=== PATIENT | male | born 1935 | race Caucasian/White ===

== ENCOUNTER 2017-12-01 16:17 | Outpatient (CLI) | payer MEDICARE ==
[~2017-12-01 16:17] MED LIST: ASPI81TA52 PO; CHOL100046 PO; CIPR250T4 PO; GLUC-133 PO; MELA1TAB15 PO; METO-539 PO; METO50TA7 PO; MULT1TAB74 PO; SIMV10TA2 PO; TAMS0.4C32 PO
== END 2017-12-01 23:59 | disposition home or self-care (01) ==
LOC: VAS 16:17
PROVIDERS: ATTEND Specialist
DX: R60.0 Localized edema (principal)
CPT/HCPCS: 93970

== ENCOUNTER 2018-03-15 09:40 | Outpatient (CLI) | payer MEDICARE ==
[2018-03-15 10:50] LABS: BASOPHILS % (AUTO) 0.7 % (0-1); EOSINOPHILS # (AUTO) 0.1 X10'3 (0-0.9); EOSINOPHILS % (AUTO) 2.3 % (0-6); HEMATOCRIT 40.4 % (42.0-52.0); HEMOGLOBIN 13.7 g/dl (14.0-17.9); LYMPHOCYTES # (AUTO) 0.7 X10'3 (1.1-4.8); LYMPHOCYTES % (AUTO) 15.2 % (21-51); MEAN CORPUSCULAR HEMOGLOBIN 31.4 PG (27.0-31.0); MEAN CORPUSCULAR VOLUME 92.3 FL (78-98); MEAN PLATELET VOLUME 8.6 FL (7.4-10.4); MONOCYTES # (AUTO) 0.5 X10'3 (0-0.9); MONOCYTES % (AUTO) 10.4 % (2-12); NEUTROPHILS # (AUTO) 3.5 X10'3 (1.8-7.7); NEUTROPHILS % (AUTO) 71.4 % (42-75); PLATELET COUNT 156 X10'3 (140-440); RED BLOOD COUNT 4.37 X10'6 (4.70-6.10); RED CELL DISTRIBUTION WIDTH 13.1 % (11.5-14.5); WHITE BLOOD COUNT 4.8 X10'3 (4.5-11.0)
[2018-03-15 10:51] LABS: ALANINE AMINOTRANSFERASE 26 U/L (12-78); ALBUMIN 3.4 G/DL (3.4-5.0); ALBUMIN/GLOBULIN RATIO 1.1 (1.1-1.5); ALKALINE PHOSPHATASE 80 IU/L (46-116); ANION GAP 10 (8-16); ASPARTATE AMINO TRANSFERASE 20 U/L (10-37); BILIRUBIN,TOTAL 0.6 MG/DL (0.1-1.0); BLOOD UREA NITROGEN 21 MG/DL (7-18); BUN/CREATININE RATIO 26.6 (5.4-32.0); CALCIUM 8.4 MG/DL (8.5-10.1); CHLORIDE 106 MMOL/L (99-107); CREATININE 0.79 MG/DL (0.60-1.10); GLUCOSE 93 MG/DL (70-104); SODIUM 141 MMOL/L (135-145); TOTAL CARBON DIOXIDE 25.1 MMOL/L (24-32); TOTAL PROTEIN 6.6 G/DL (6.4-8.2); eGFR > 90 ML/MIN
[2018-03-15 10:56] LABS: PROTHROMBIN TIME 10.7 SECONDS (9.0-12.0)
[2018-03-15 10:58] LABS: CLARITY,URINE CLEAR (Clear); COLOR,URINE YELLOW (Yellow); GLUCOSE, URINE NEGATIVE (Neg); KETONES,URINE NEGATIVE (Neg); LEUKOCYTE ESTERASE ,URINE NEGATIVE (Neg); NITRITES, URINE NEGATIVE (Neg); OCCULT BLOOD,URINE TRACE-INTACT (Neg); PH,URINE 5.5 (4.8-8.0); PROTEIN,URINE NEGATIVE (Neg); UROBILINOGEN,URINE 0.2 E.U/dL (0.2-1.0)
[2018-03-15 11:00] LABS: UA COLLECTION TYPE CLN CATCH MIDSTREAM
[2018-03-15 11:10] LABS: BACTERIA,URINE FEW /HPF (Neg); RBC,URINE 0-2 /HPF (0-2); SQUAMOUS EPITHELIAL CELL,UR FEW /LPF (FEW); WBC,URINE 0-4 /HPF (0-4)
== END 2018-03-15 23:59 | disposition home or self-care (01) ==
LOC: LAB 09:40
PROVIDERS: ATTEND Specialist
DX: Z01.818 Encounter for other preprocedural examination (principal); Z51.81 Encounter for therapeutic drug level monitoring; N39.0 Urinary tract infection, site not specified; Z96.651 Presence of right artificial knee joint; Z79.82 Long term (current) use of aspirin; Z79.899 Other long term (current) drug therapy
CPT/HCPCS: 36415; 80053; 81001; 85025; 85610; 87070

== ENCOUNTER 2018-03-29 07:30 | Inpatient (IN) | payer MEDICARE ==
[2018-03-29] VITALS (18 sets, daily range): BP systolic 108–142; BP diastolic 64–88
[~2018-03-29] VITALS: Ht 170.2 cm; Wt 65.5 kg
[~2018-03-29 07:30] MED LIST changes: -CHOL100046 PO; -CIPR250T4 PO; +DOCUMENT DATE & TIME OF BETA-BLOCKER PO ONE; +DUTA0.5C40 PO; +FLO0.4C PO; -GLUC-133 PO; -MELA1TAB15 PO; -MULT1TAB74 PO; -TAMS0.4C32 PO; +acetaminophen 325mg tablet PO ONE; +cefazolin/dext.iso 2gm/100 ML IV ONE; +celeCOXIB 100mg capsule PO ONE; +famotidine 20mg tablet PO ONE; +gabapentin 300mg capsule PO ONE; +ringers solution, lacted 1,000 ML IV SCH; +tranexamic acid inj. 1,500 MG in normal saline 100ml IV soln 100 ML IV ONE
[2018-03-29] MEDS ORDERED: bacitracin inj 150,000 UNIT in sodium chloride irrig. sol 3,000 ML IR ONE (10:00)
[2018-03-29] MEDS ORDERED: ROPIVAcaine 0.5% (5mg/ml) 30ml vial ONE ×2 (10:02→10:08)
[2018-03-29] MEDS ORDERED: tetracaine 1% (10mg/ml) pres. free inj. ONE (10:08)
[2018-03-29] MEDS ORDERED: BUPIVAcaine/dex-water/PF 7.5 mg/ml 2ml ampul ONE (10:09)
[2018-03-29] MEDS ORDERED: LIDOcaine 2% (20mg/ml) 5ml vial ONE (10:10)
[2018-03-29] MEDS ORDERED: fentaNYL/PF 50MCG/1 ML 2ML syringe ONE (10:11)
[2018-03-29] MEDS ORDERED: MIDAZolam 1mg/ml 10ml vial ONE (10:11)
[2018-03-29] MEDS ORDERED: propofol inj 20 ML IV ONE ×2 (10:15)
[2018-03-29] MEDS ORDERED: ePHEDrine 50MG/ML INJ. ONE (10:39)
[2018-03-29] MEDS ORDERED: ringers solution, lacted 1,000 ML IV SCH (11:09)
[2018-03-29] MEDS ORDERED: labetalol 20mg/4ml (5mg/ml) syringe IV PRN (11:10)
[2018-03-29] MEDS ORDERED: fentaNYL/PF 50MCG/1 ML 2ML syringe IV PRN ×2 (11:10)
[2018-03-29] MEDS ORDERED: hydrALAZINE 20mg/ml inj. IV PRN (11:10)
[2018-03-29] MEDS ORDERED: ondansetron/PF 4mg/2ml inj IV PRN ×3 (11:10→12:35)
[2018-03-29] MEDS ORDERED: morphine 4 MG/ML inj SYRINge IV PRN ×2 (11:10)
[2018-03-29] MEDS ORDERED: diphenhydrAMINE 50 mg/ml inj IV PRN (11:15)
[2018-03-29] MEDS ORDERED: ceFAZolin 1000mg inj ONE (11:23)
[2018-03-29] MEDS ORDERED: acetaminophen 325mg tablet PO PRN (12:35)
[2018-03-29] MEDS ORDERED: magnesium hydroxide 30ml (MOM) UD suspension PO PRN (12:35)
[2018-03-29] MEDS ORDERED: bisacodyl 10mg suppository rectal RC PRN (12:35)
[2018-03-29] MEDS ORDERED: diphenhydrAMINE 25mg capsule PO PRN ×2 (12:35)
[2018-03-29] MEDS: ceFAZolin 1GM/D5W- ADD-VANTAGE 50 ML IV SCH ×2 (15:31→23:23)
[2018-03-29] MEDS: gabapentin 300mg capsule PO SCH ×2 (15:31→20:38)
[2018-03-29] MEDS: potassium cl 20mEq in 1/2 NS 1,000 ML IV SCH ×2 (17:30→23:27)
[2018-03-29] MEDS: proCHLORperazine 10 MG/2 ml inj IV PRN (19:23)
[2018-03-29] MEDS: atorvastatin 10mg tablet PO SCH (20:37)
[2018-03-29] MEDS: tamsulosin 0.4mg capsule PO SCH (20:37)
[2018-03-29] MEDS: sennosides 8.6mg tablet PO SCH (20:37)
[2018-03-29] MEDS: lactobacillus rhamnosus 10,000 MMU CELLS/CAPSULE PO SCH (20:37)
[2018-03-29] MEDS: ascorbic acid 500mg tablet PO SCH (20:37)
[2018-03-29] MEDS: metoprolol succinate 25mg (24-HOUR) SR. Tablet PO SCH (20:37)
[2018-03-29] MEDS ORDERED: non-formulary drug (Simvastatin (Zocor) 1 TAB) PO SCH (21:00)
[2018-03-29] MEDS: dutasteride 0.5 MG capsule PO SCH (21:00)
[2018-03-30 02:00] VITALS: BP 101/69
[2018-03-30] MEDS: oxyCODONE/APAP 5-325mg tablet PO PRN ×5 (04:42→23:34)
[2018-03-30 05:54] LABS: BASOPHILS % (AUTO) 0.2 % (0-1); EOSINOPHILS # (AUTO) 0.1 X10'3 (0-0.9); EOSINOPHILS % (AUTO) 0.7 % (0-6); HEMATOCRIT 37.2 % (42.0-52.0); HEMOGLOBIN 12.4 g/dl (14.0-17.9); LYMPHOCYTES # (AUTO) 0.4 X10'3 (1.1-4.8); LYMPHOCYTES % (AUTO) 4.6 % (21-51); MEAN CORPUSCULAR HEMOGLOBIN 30.8 PG (27.0-31.0); MEAN CORPUSCULAR HGB CONC 33.4 % (33.0-36.5); MEAN CORPUSCULAR VOLUME 92.1 FL (78-98); MEAN PLATELET VOLUME 7.9 FL (7.4-10.4); MONOCYTES # (AUTO) 0.7 X10'3 (0-0.9); MONOCYTES % (AUTO) 9.3 % (2-12); NEUTROPHILS # (AUTO) 6.6 X10'3 (1.8-7.7); NEUTROPHILS % (AUTO) 85.2 % (42-75); PLATELET COUNT 140 X10'3 (140-440); RED BLOOD COUNT 4.04 X10'6 (4.70-6.10); RED CELL DISTRIBUTION WIDTH 14.1 % (11.5-14.5); WHITE BLOOD COUNT 7.8 X10'3 (4.5-11.0)
[2018-03-30 06:00] VITALS: BP 103/57
[2018-03-30 06:08] LABS: INR 1.4 INR; PROTHROMBIN TIME 14.4 SECONDS (9.0-12.0)
[2018-03-30 06:19] LABS: ALANINE AMINOTRANSFERASE 23 U/L (12-78); ALBUMIN 2.9 G/DL (3.4-5.0); ALKALINE PHOSPHATASE 50 IU/L (46-116); ANION GAP 8 (8-16); ASPARTATE AMINO TRANSFERASE 19 U/L (10-37); BILIRUBIN,TOTAL 0.7 MG/DL (0.1-1.0); BLOOD UREA NITROGEN 17 MG/DL (7-18); BUN/CREATININE RATIO 21.8 (5.4-32.0); CALCIUM 7.9 MG/DL (8.5-10.1); CHLORIDE 104 MMOL/L (99-107); CREATININE 0.78 MG/DL (0.60-1.10); GLUCOSE 115 MG/DL (70-104); POTASSIUM 4.7 MMOL/L (3.5-5.1); SODIUM 137 MMOL/L (135-145); TOTAL CARBON DIOXIDE 25.5 MMOL/L (24-32); TOTAL PROTEIN 5.7 G/DL (6.4-8.2); eGFR > 90 ML/MIN
[2018-03-30] MEDS: lactobacillus rhamnosus 10,000 MMU CELLS/CAPSULE PO SCH ×2 (07:25→20:19)
[2018-03-30] MEDS: gabapentin 300mg capsule PO SCH ×3 (07:25→20:19)
[2018-03-30] MEDS: ascorbic acid 500mg tablet PO SCH ×2 (07:25→20:22)
[2018-03-30] MEDS: multivitamins, therapeutics tablet PO SCH (07:26)
[2018-03-30] MEDS: metoprolol succinate 25mg (24-HOUR) SR. Tablet PO SCH ×2 (07:36→21:00)
[2018-03-30] MEDS ORDERED: non-formulary drug (Metoprolol Succinate* (Toprol Xl*) 1 TAB) PO SCH (08:00)
[2018-03-30] MEDS: proCHLORperazine 10 MG/2 ml inj IV PRN (08:26)
[2018-03-30 10:00] VITALS: BP 102/57
[2018-03-30] MEDS ORDERED: warfarin 5mg tablet PO ONE (10:00)
[2018-03-30 10:42] VITALS: BP 102/57
[2018-03-30] MEDS: potassium cl 20mEq in 1/2 NS 1,000 ML IV SCH ×3 (10:59→23:20)
[2018-03-30 18:00] VITALS: BP 96/51
[2018-03-30] MEDS: HYDROmorphone 1 mg/ml syringe IV PRN (20:17)
[2018-03-30] MEDS: atorvastatin 10mg tablet PO SCH (20:21)
[2018-03-30] MEDS: sennosides 8.6mg tablet PO SCH (20:21)
[2018-03-30] MEDS: dutasteride 0.5 MG capsule PO SCH (20:22)
[2018-03-30] MEDS: tamsulosin 0.4mg capsule PO SCH (20:22)
[2018-03-30 22:00] VITALS: BP 121/62
[2018-03-31 02:00] VITALS: BP 121/59
[2018-03-31] MEDS: potassium cl 20mEq in 1/2 NS 1,000 ML IV SCH (04:33)
[2018-03-31] MEDS: oxyCODONE/APAP 5-325mg tablet PO PRN (04:52)
[2018-03-31 06:00] VITALS: BP 138/70
[2018-03-31 06:58] LABS: BASOPHILS % (AUTO) 0.1 % (0-1); EOSINOPHILS # (AUTO) 0.1 X10'3 (0-0.9); EOSINOPHILS % (AUTO) 1.6 % (0-6); HEMATOCRIT 39.6 % (42.0-52.0); LYMPHOCYTES # (AUTO) 0.6 X10'3 (1.1-4.8); LYMPHOCYTES % (AUTO) 6.6 % (21-51); MEAN CORPUSCULAR HEMOGLOBIN 30.4 PG (27.0-31.0); MEAN CORPUSCULAR HGB CONC 32.7 % (33.0-36.5); MEAN CORPUSCULAR VOLUME 92.8 FL (78-98); MEAN PLATELET VOLUME 8.2 FL (7.4-10.4); MONOCYTES # (AUTO) 0.9 X10'3 (0-0.9); NEUTROPHILS # (AUTO) 7.3 X10'3 (1.8-7.7); NEUTROPHILS % (AUTO) 81.7 % (42-75); PLATELET COUNT 147 X10'3 (140-440); RED BLOOD COUNT 4.27 X10'6 (4.70-6.10); RED CELL DISTRIBUTION WIDTH 14.7 % (11.5-14.5)
[2018-03-31] MEDS: HYDROmorphone 1 mg/ml syringe IV PRN (06:58)
[2018-03-31 07:17] LABS: INR 1.6 INR; PROTHROMBIN TIME 16.1 SECONDS (9.0-12.0)
[2018-03-31 07:29] LABS: ALANINE AMINOTRANSFERASE 22 U/L (12-78); ALBUMIN 3.1 G/DL (3.4-5.0); ALKALINE PHOSPHATASE 56 IU/L (46-116); ANION GAP 9 (8-16); ASPARTATE AMINO TRANSFERASE 17 U/L (10-37); BILIRUBIN,TOTAL 0.8 MG/DL (0.1-1.0); BLOOD UREA NITROGEN 16 MG/DL (7-18); BUN/CREATININE RATIO 18.8 (5.4-32.0); CALCIUM 8.1 MG/DL (8.5-10.1); CHLORIDE 105 MMOL/L (99-107); CREATININE 0.85 MG/DL (0.60-1.10); GLUCOSE 95 MG/DL (70-104); POTASSIUM 4.1 MMOL/L (3.5-5.1); SODIUM 141 MMOL/L (135-145); TOTAL CARBON DIOXIDE 26.9 MMOL/L (24-32); TOTAL PROTEIN 6.1 G/DL (6.4-8.2); eGFR 87 ML/MIN
[2018-03-31 08:48] VITALS: BP 122/66
[2018-03-31] MEDS: lactobacillus rhamnosus 10,000 MMU CELLS/CAPSULE PO SCH ×2 (09:12→21:03)
[2018-03-31] MEDS: ascorbic acid 500mg tablet PO SCH ×2 (09:12→21:03)
[2018-03-31] MEDS: multivitamins, therapeutics tablet PO SCH (09:12)
[2018-03-31] MEDS: metoprolol succinate 25mg (24-HOUR) SR. Tablet PO SCH ×2 (09:13→21:04)
[2018-03-31] MEDS: gabapentin 300mg capsule PO SCH ×3 (09:13→21:04)
[2018-03-31] MEDS: oxyCODONE/APAP 10/325mg tablet PO PRN ×4 (09:14→21:36)
[2018-03-31 10:00] VITALS: BP_SYST 113; BP_SYST 124; BP_DIAS 49; BP_DIAS 67
[2018-03-31] MEDS ORDERED: warfarin 3mg tablet PO ONE (10:00)
[2018-03-31 18:00] VITALS: BP 127/70
[2018-03-31] MEDS: dutasteride 0.5 MG capsule PO SCH (21:03)
[2018-03-31] MEDS: tamsulosin 0.4mg capsule PO SCH (21:03)
[2018-03-31] MEDS: atorvastatin 10mg tablet PO SCH (21:03)
[2018-03-31] MEDS: sennosides 8.6mg tablet PO SCH (21:04)
[2018-03-31 22:00] VITALS: BP 132/61
[2018-04-01] MEDS: oxyCODONE/APAP 10/325mg tablet PO PRN ×5 (02:19→15:46)
[2018-04-01 06:00] VITALS: BP 131/76
[2018-04-01 06:42] LABS: BASOPHILS % (AUTO) 0.3 % (0-1); EOSINOPHILS # (AUTO) 0.2 X10'3 (0-0.9); EOSINOPHILS % (AUTO) 2.6 % (0-6); HEMATOCRIT 37.5 % (42.0-52.0); HEMOGLOBIN 12.5 g/dl (14.0-17.9); LYMPHOCYTES # (AUTO) 0.8 X10'3 (1.1-4.8); LYMPHOCYTES % (AUTO) 9.8 % (21-51); MEAN CORPUSCULAR HEMOGLOBIN 30.9 PG (27.0-31.0); MEAN CORPUSCULAR HGB CONC 33.3 % (33.0-36.5); MEAN CORPUSCULAR VOLUME 92.7 FL (78-98); MEAN PLATELET VOLUME 8.2 FL (7.4-10.4); MONOCYTES # (AUTO) 0.9 X10'3 (0-0.9); MONOCYTES % (AUTO) 11.6 % (2-12); NEUTROPHILS # (AUTO) 6.1 X10'3 (1.8-7.7); NEUTROPHILS % (AUTO) 75.7 % (42-75); PLATELET COUNT 145 X10'3 (140-440); RED BLOOD COUNT 4.05 X10'6 (4.70-6.10); RED CELL DISTRIBUTION WIDTH 14.5 % (11.5-14.5)
[2018-04-01 07:00] LABS: INR 1.5 INR
[2018-04-01 07:03] LABS: ALANINE AMINOTRANSFERASE 20 U/L (12-78); ALBUMIN 2.9 G/DL (3.4-5.0); ALBUMIN/GLOBULIN RATIO 0.9 (1.1-1.5); ALKALINE PHOSPHATASE 54 IU/L (46-116); ANION GAP 7 (8-16); ASPARTATE AMINO TRANSFERASE 15 U/L (10-37); BILIRUBIN,TOTAL 0.7 MG/DL (0.1-1.0); BLOOD UREA NITROGEN 15 MG/DL (7-18); BUN/CREATININE RATIO 18.8 (5.4-32.0); CALCIUM 8.6 MG/DL (8.5-10.1); CHLORIDE 104 MMOL/L (99-107); GLUCOSE 89 MG/DL (70-104); SODIUM 141 MMOL/L (135-145); TOTAL CARBON DIOXIDE 30.2 MMOL/L (24-32); TOTAL PROTEIN 6.2 G/DL (6.4-8.2); eGFR > 90 ML/MIN
[2018-04-01] MEDS: lactobacillus rhamnosus 10,000 MMU CELLS/CAPSULE PO SCH (08:01)
[2018-04-01] MEDS: multivitamins, therapeutics tablet PO SCH (08:02)
[2018-04-01] MEDS: gabapentin 300mg capsule PO SCH ×2 (08:02→13:00)
[2018-04-01] MEDS: ascorbic acid 500mg tablet PO SCH (08:02)
[2018-04-01] MEDS: metoprolol succinate 25mg (24-HOUR) SR. Tablet PO SCH (08:03)
[2018-04-01 10:00] VITALS: BP 107/66
[2018-04-01] MEDS ORDERED: warfarin 4mg tablet PO ONE (10:00)
== END 2018-04-01 16:05 | DRG 470 ==
LOC: PAS IN 09:00 → EDSTATUS 11:00 → ORTHO 4S 13:50
PROVIDERS: ADMIT Specialist; ATTEND Specialist
PROC: 3E0T3BZ Introduction of Anesthetic Agent into Peripheral Nerves and Plexi, Percutaneous Approach (ICD-10-PCS; 2018-03-29)
PROC: 0SRD0J9 Replacement of Left Knee Joint with Synthetic Substitute, Cemented, Open Approach (ICD-10-PCS; principal; 2018-03-29 10:15)
DX: M17.12 Unilateral primary osteoarthritis, left knee (principal); D62 Acute posthemorrhagic anemia; N40.0 Benign prostatic hyperplasia without lower urinary tract symptoms; G47.33 Obstructive sleep apnea (adult) (pediatric); I25.10 Atherosclerotic heart disease of native coronary artery without angina pectoris; F32.9 Major depressive disorder, single episode, unspecified; E78.5 Hyperlipidemia, unspecified; I48.91 Unspecified atrial fibrillation; Z96.651 Presence of right artificial knee joint; M21.162 Varus deformity, not elsewhere classified, left knee; Z79.899 Other long term (current) drug therapy; Z79.82 Long term (current) use of aspirin; Z85.820 Personal history of malignant melanoma of skin
CPT/HCPCS: 36415; 73560; 80053; 85025; 85610; 97110; 97116; 97162; 97530; A6449; A6455; A7000; C1713; C1758; C1776; J0690; J0780; J1170; J2001; J2250; J2405; J2704; J2795; J3010; J3490; J7030; J7120; Q0163

== ENCOUNTER 2019-02-20 20:42 | Emergency (ER) | payer MEDICARE ==
[~2019-02-20] VITALS: Ht 170.2 cm; Wt 64.5 kg
[~2019-02-20 20:42] MED LIST changes: -DOCUMENT DATE & TIME OF BETA-BLOCKER PO ONE; -acetaminophen 325mg tablet PO ONE; -cefazolin/dext.iso 2gm/100 ML IV ONE; -celeCOXIB 100mg capsule PO ONE; -famotidine 20mg tablet PO ONE; -gabapentin 300mg capsule PO ONE; -ringers solution, lacted 1,000 ML IV SCH; -tranexamic acid inj. 1,500 MG in normal saline 100ml IV soln 100 ML IV ONE
[2019-02-20] MEDS ORDERED: HYDROcodone/acetaminophen 5mg/325mg tablet PO ONE (22:10)
[2019-02-20 22:12] VITALS: BP 130/83
== END 2019-02-20 22:15 | disposition home or self-care (01) ==
LOC: ER 20:43
DX: S50.311A Abrasion of right elbow, initial encounter (principal); S00.211A Abrasion of right eyelid and periocular area, initial encounter; R07.81 Pleurodynia; I48.91 Unspecified atrial fibrillation; I25.10 Atherosclerotic heart disease of native coronary artery without angina pectoris; E78.00 Pure hypercholesterolemia, unspecified; I10 Essential (primary) hypertension; Z79.82 Long term (current) use of aspirin; Z98.890 Other specified postprocedural states; Z79.899 Other long term (current) drug therapy; W18.30XA Fall on same level, unspecified, initial encounter; Y93.89 Activity, other specified; Y92.89 Other specified places as the place of occurrence of the external cause; Y99.9 Unspecified external cause status
CPT/HCPCS: 71046; 93005; 99284

== ENCOUNTER 2019-06-03 10:18 | Emergency (ER) | payer MEDICAID, MEDICARE ==
[~2019-06-03] VITALS: Ht 167.6 cm; Wt 44.6 kg
--- NOTE | 2019-06-03 11:07 | NUR ---
Pt no longer taking his medications as he can not afford them and has no RX coverage.
[2019-06-03] MEDS ORDERED: SERT-153 PO (11:10)
[2019-06-03] MEDS ORDERED: LORazepam 1 MG tablet PO ONE (11:55)
[2019-06-03 12:53] LABS: CLARITY,URINE CLEAR (Clear); COLOR,URINE YELLOW (Yellow); GLUCOSE, URINE NEGATIVE (Neg); KETONES,URINE NEGATIVE (Neg); LEUKOCYTE ESTERASE ,URINE NEGATIVE (Neg); NITRITES, URINE NEGATIVE (Neg); OCCULT BLOOD,URINE NEGATIVE (Neg); PH,URINE 5.5 (4.8-8.0); PROTEIN,URINE NEGATIVE (Neg)
[2019-06-03 12:54] LABS: UA COLLECTION TYPE CLN CATCH MIDSTREAM
[2019-06-03 13:05] LABS: BASOPHILS % (AUTO) 0.2 % (0-1); EOSINOPHILS % (AUTO) 0.3 % (0-6); HEMATOCRIT 44.6 % (42.0-52.0); HEMOGLOBIN 15.1 g/dl (14.0-17.9); LYMPHOCYTES # (AUTO) 0.4 X10'3 (1.1-4.8); LYMPHOCYTES % (AUTO) 4.4 % (21-51); MEAN CORPUSCULAR HEMOGLOBIN 32.6 PG (27.0-31.0); MEAN CORPUSCULAR HGB CONC 33.9 g/dL (33.0-36.5); MEAN CORPUSCULAR VOLUME 96.3 FL (78-98); MONOCYTES # (AUTO) 0.8 X10'3 (0-0.9); MONOCYTES % (AUTO) 8.8 % (2-12); NEUTROPHILS # (AUTO) 7.5 X10'3 (1.8-7.7); NEUTROPHILS % (AUTO) 86.3 % (42-75); PLATELET COUNT 166 X10'3 (140-440); RED BLOOD COUNT 4.63 X10'6 (4.70-6.10); RED CELL DISTRIBUTION WIDTH 13.6 % (11.5-14.5); WHITE BLOOD COUNT 8.6 X10'3 (4.5-11.0)
[2019-06-03 13:08] LABS: URINE AMPHETAMINE SCREEN NEGATIVE (Neg); URINE BARBITUATE SCREEN NEGATIVE (Neg); URINE BENZODIAZEPINES SCREEN NEGATIVE (Neg); URINE CANNABINOID SCREEN NEGATIVE (Neg); URINE COCAINE SCREEN NEGATIVE (Neg); URINE METHADONE SCREEN NEGATIVE (Neg); URINE OPIATE SCREEN NEGATIVE (Neg); URINE PHENCYCLIDINE SCREEN NEGATIVE (Neg)
--- NOTE | 2019-06-03 13:17 | NUR ---
belongings collected and given to son of pt to take home.
[2019-06-03 13:25] LABS: ALANINE AMINOTRANSFERASE 60 U/L (12-78); ALBUMIN 3.7 G/DL (3.4-5.0); ALBUMIN/GLOBULIN RATIO 1.2 (1.1-1.5); ALKALINE PHOSPHATASE 68 IU/L (46-116); ANION GAP 11 (8-16); ASPARTATE AMINO TRANSFERASE 27 U/L (10-37); BILIRUBIN,TOTAL 1.4 MG/DL (0.1-1.0); BLOOD UREA NITROGEN 28 MG/DL (7-18); CALCIUM 8.8 MG/DL (8.5-10.1); CHLORIDE 105 MMOL/L (99-107); CREATININE 1.12 MG/DL (0.60-1.10); GLUCOSE 110 MG/DL (70-104); POTASSIUM 4.1 MMOL/L (3.5-5.1); SODIUM 142 MMOL/L (135-145); TOTAL CARBON DIOXIDE 26.3 MMOL/L (24-32); TOTAL PROTEIN 6.9 G/DL (6.4-8.2); eGFR 63 ML/MIN
[2019-06-03 13:34] LABS: ETHANOL < 0.010 GM/DL (0.0-0.010)
[2019-06-03] MEDS ORDERED: OLANZapine 5mg rapidly disint. tablet PO ONE (15:50)
[2019-06-03] MEDS ORDERED: bacitracin 15gm ointment TP ONE (18:35)
--- NOTE | 2019-06-03 18:45 | NUR ---
This patient is awake and well oriented. He is moved from bed 8 in the main ER to bed 20 in overflow. Patient has primary complaint of anxiety. Patient states he has not had a tetnus shot for years, a small flap wound present on his right hand that has been present for a week. Family is visiting at bedside.
[2019-06-03] MEDS ORDERED: tetanus & diphtheria toxoid (Td) vaccine 0.5ml IMVAC ONE (18:55)
[2019-06-03] MEDS ORDERED: TETanus/Pertussis (Acell)/Diphther VAC/PF (Tdap-Adult) 0.5ml syringe IMVAC ONE (19:05)
[2019-06-03] MEDS: LORazepam 1 MG tablet PO PRN (19:22)
--- NOTE | 2019-06-03 19:32 | NUR ---
In speaking with family the patients daughter and son the following information was obtained. The patient has been non compliant on taking home medications. Patient has been experiencing anxiety, some paranoia, and depression. Patient reported to not be eating well. The patient was given PO ativan earlier today and symptoms subsided. Upon this writers interview 1:1 with this patient he is just starting to experience anxiety. 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 The Doxepin was discontinued as patients depression resolved. This patient describes parania, he believes his residence may be being survailed by the police, he believes lights may be coming through the kitchen window. This patient makes good eye contact with this investigative writer. His voice is within normal limits. Patient denies depression at this moment. Patient denies S/I, he does feel like he is a burden to his family. Patients bed is in view from the nursing station. Frequent rounding is being done for patient and staff safety.
--- NOTE | 2019-06-03 21:50 | NUR ---
Patient is sitting up finishing his dinner that he did not complete earlier. Patient started commenting with nobody at bedside. When this narrative writer inquires who he is talking to the patient states the movie he is watchin " has an actor in it that has in real life."
[2019-06-03] MEDS ORDERED: FLO0.4C PO (21:58)
[2019-06-03] MEDS ORDERED: SIMV10TA2 PO (22:02)
[2019-06-03] MEDS ORDERED: ASPI-1265 PO (22:06)
[2019-06-03] MEDS ORDERED: DUTA0.5C40 PO (22:08)
[2019-06-03] MEDS ORDERED: METO100T7 PO (22:10)
[2019-06-03] MEDS ORDERED: temazepam 15mg capsule PO ONE (22:30)
--- NOTE | 2019-06-03 22:30 | NUR ---
The med rec is complete. Patient states he has not been taking Rx meds as he has not had the money to refil Rx's. Patient confirmed doses of medications with this typewriter assembly and parts inspector. The only dosage change was on patients Metoprolol, patient states his PMD incrreased from 50mg to 100mg QHS. This typewriter assembly and parts inspector addressed patients blood pressure with Dr. Lutz, per MD re-evaluate blood pressure prior to administering. Patients B/P was 92/61 tonight. No Metoprolol will be given tonight.
--- NOTE | 2019-06-03 22:38 | NUR ---
Patient was given a urinal to use at bedside, he is shakey when standing.
--- NOTE | 2019-06-03 22:50 | NUR ---
Dajuan Monet, patients son. [phone]
--- NOTE | 2019-06-03 22:51 | NUR ---
Patient laying low fowlers in bed. He is having conversations with a non existant person. Restoril has been given for sleep. Patient in view from nursing station.
--- NOTE | 2019-06-04 00:43 | NUR ---
Patient is sleeping quietly on his right side. In view from the nursing station.
--- NOTE | 2019-06-04 02:15 | NUR ---
Patient awoke and stated he needed to void. Patient had voided in the bed. Patient changed, clean scrubs given. Bedding changed. Patient voided an additional 200 cc clear straw urine. Patient placed back in bed in low fowlers position. Warm blankets provided. Patient in view from nursing station.
--- NOTE | 2019-06-04 03:20 | NUR ---
Patient is sleeping quietly in a low fowlers position.
--- NOTE | 2019-06-04 04:10 | NUR ---
Patient awakens to void then returns to sleep.
--- NOTE | 2019-06-04 05:10 | NUR ---
Patient is sleeping on his left side.
--- NOTE | 2019-06-04 06:00 | NUR ---
Patient is awake for vital signs. He ambulates to bathroom, states he is going to have a BM.
[2019-06-04 06:01] VITALS: BP 126/90
--- NOTE | 2019-06-04 06:33 | NUR ---
Pt ambulating to bathroom with a steady gait
--- NOTE | 2019-06-04 07:55 | NUR ---
PT UP AMBULATING TO THE RESTROOM WITH SLOW STEADY GAIT.
[2019-06-04] MEDS ORDERED: tamsulosin 0.4mg capsule PO SCH (08:00)
[2019-06-04] MEDS ORDERED: sertraline 25mg tablet PO SCH (08:00)
--- NOTE | 2019-06-04 08:02 | NUR ---
Pt is speaking to his step daughter on the phone. He says he has been suffering from severe depression. He feels the medications he has been given here have been helpful. He especially thinks the zyprexa and ativan have been helpful.
[2019-06-04] MEDS: LORazepam 1 MG tablet PO PRN (08:17)
--- NOTE | 2019-06-04 09:04 | NUR ---
Pricila from [facility] called and is requestion a psych eval. Paged for a psych consult from the provider at [facility].
--- NOTE | 2019-06-04 10:31 | NUR ---
Pt up to the bathroom ambulating with steady gait
--- NOTE | 2019-06-04 11:02 | NUR ---
Client in bathroom cleaning up after an episode of incontinence
--- NOTE | 2019-06-04 11:10 | NUR ---
PT AMBULATED TO THE RESTROOM AND URINATED ON HIMSELF. PT GIVEN WIPES AND NEW SCRUB BOTTOMS. PT REQUESTING PULL UPS WHICH WE DO NOT CARRY. PT SON RAYRAY CONTACTED WHO STATES HE LIVES IN [place] AND WILL BRING SOME IN. PT AMBULATED BACK TO BED AND IS RESTING.
--- NOTE | 2019-06-04 11:51 | NUR ---
Pt family incuding son Karlie are at bedside with Pt
--- NOTE | 2019-06-04 11:58 | NUR ---
Pt is being evaluated by Ambrose Sequeira from [facility]
--- NOTE | 2019-06-04 13:00 | NUR ---
Pricila from [facility] let this RN know that patient is not meeting criteria for a mental health hold
--- NOTE | 2019-06-04 13:45 | NUR ---
Pt ambulated off the unit with his son Michael. He denies suicidality and homicidality. He understand that he needs to follow up oupatient. Pt has all belongings with him
[2019-06-04] MEDS ORDERED: metoprolol succinate 25mg (24-HOUR) SR. Tablet PO SCH (21:00)
[2019-06-04] MEDS ORDERED: dutasteride 0.5 MG capsule PO SCH (21:00)
[2019-06-04] MEDS ORDERED: aspirin 81mg tab.chew PO SCH (21:00)
[2019-06-04] MEDS ORDERED: atorvastatin 10mg tablet PO SCH (21:00)
== END 2019-06-04 13:45 | disposition home or self-care (01) ==
LOC: ER 10:19
DX: S61.206A Unspecified open wound of right little finger without damage to nail, initial encounter (principal); F32.9 Major depressive disorder, single episode, unspecified; F22 Delusional disorders; I48.91 Unspecified atrial fibrillation; I25.10 Atherosclerotic heart disease of native coronary artery without angina pectoris; E78.00 Pure hypercholesterolemia, unspecified; I10 Essential (primary) hypertension; Z98.890 Other specified postprocedural states; Z60.2 Problems related to living alone; Z79.82 Long term (current) use of aspirin; Z79.899 Other long term (current) drug therapy; X58.XXXA Exposure to other specified factors, initial encounter; Y93.89 Activity, other specified; Y92.89 Other specified places as the place of occurrence of the external cause; Y99.8 Other external cause status
CPT/HCPCS: 36415; 70450; 80053; 80305; 80320; 81003; 84443; 85025; 90471; 90715; 99284

== ENCOUNTER 2019-06-04 15:23 | Emergency (ER) | payer MEDICARE ==
[~2019-06-04] VITALS: Ht 167.6 cm; Wt 55.0 kg
[~2019-06-04 15:23] MED LIST changes: +ASPI-1265 PO; -ASPI81TA52 PO; -METO-539 PO; +METO100T7 PO; -METO50TA7 PO; +SERT-153 PO
[2019-06-04 16:25] VITALS: BP 116/73
[2019-06-04 16:25] LABS: CLARITY,URINE CLOUDY (Clear); COLOR,URINE RED (Yellow); GLUCOSE, URINE NEGATIVE (Neg); KETONES,URINE NEGATIVE (Neg); LEUKOCYTE ESTERASE ,URINE TRACE (Neg); OCCULT BLOOD,URINE LARGE (Neg); PROTEIN,URINE 100 mg/dl (Neg); UROBILINOGEN,URINE 0.2 E.U/dL (0.2-1.0)
[2019-06-04 16:31] LABS: UA COLLECTION TYPE CLN CATCH MIDSTREAM
[2019-06-04 16:32] LABS: NITRITES, URINE NEGATIVE (Neg)
[2019-06-04 16:33] LABS: BACTERIA,URINE NONE SEEN /HPF (Neg); MUCUS STRANDS NONE SEEN /LPF (Neg); RBC,URINE TNTC /HPF (0-2); SQUAMOUS EPITHELIAL CELL,UR NONE SEEN /LPF (FEW); WBC,URINE 0-4 /HPF (0-4)
== END 2019-06-04 18:02 | disposition home or self-care (01) ==
LOC: ER 15:24
DX: R31.9 Hematuria, unspecified (principal); R30.0 Dysuria; I48.91 Unspecified atrial fibrillation; I25.10 Atherosclerotic heart disease of native coronary artery without angina pectoris; E78.00 Pure hypercholesterolemia, unspecified; I10 Essential (primary) hypertension; Z98.890 Other specified postprocedural states; Z60.2 Problems related to living alone; Z79.82 Long term (current) use of aspirin; Z79.899 Other long term (current) drug therapy
CPT/HCPCS: 81001; 87088; 99284

== ENCOUNTER 2023-12-12 12:15 | Emergency (ER) | payer MEDICARE, MEDICAID ==
[~2023-12-12] VITALS: Ht 165.1 cm; Wt 58.6 kg
[~2023-12-12 12:15] MED LIST changes: +AMI200T PO; +ESCI5TAB PO; +LAN0.25T PO; +LOSA25TA41 PO; +METO-395 PO; -METO100T7 PO; -SERT-153 PO; +SIMV-341 PO; -SIMV10TA2 PO
[2023-12-12 12:36] LABS: BASOPHILS % (AUTO) 0.3 % (0-1); EOSINOPHILS # (AUTO) 0.1 X10'3 (0-0.9); EOSINOPHILS % (AUTO) 0.9 % (0-6); HEMATOCRIT 42.9 % (42.0-52.0); HEMOGLOBIN 14.2 g/dl (14.0-17.9); LYMPHOCYTES # (AUTO) 0.8 X10'3 (1.1-4.8); LYMPHOCYTES % (AUTO) 14.7 % (21-51); MEAN CORPUSCULAR HEMOGLOBIN 30.7 PG (27.0-31.0); MEAN CORPUSCULAR HGB CONC 33.1 g/dL (33.0-36.5); MEAN CORPUSCULAR VOLUME 92.9 FL (78-98); MEAN PLATELET VOLUME 7.4 FL (7.4-10.4); MONOCYTES # (AUTO) 0.5 X10'3 (0-0.9); MONOCYTES % (AUTO) 9.2 % (2-12); NEUTROPHILS # (AUTO) 4.1 X10'3 (1.8-7.7); NEUTROPHILS % (AUTO) 74.9 % (42-75); PLATELET COUNT 188 X10'3 (140-440); RED BLOOD COUNT 4.62 X10'6 (4.70-6.10); RED CELL DISTRIBUTION WIDTH 13.4 % (11.5-14.5); WHITE BLOOD COUNT 5.5 X10'3 (4.5-11.0)
[2023-12-12 12:50] LABS: ALANINE AMINOTRANSFERASE 23 U/L (12-78); ALBUMIN 3.3 G/DL (3.4-5.0); ALBUMIN/GLOBULIN RATIO 0.9 (1.1-1.5); ALKALINE PHOSPHATASE 72 IU/L (46-116); ANION GAP 8 (8-16); ASPARTATE AMINO TRANSFERASE 17 U/L (10-37); BILIRUBIN,TOTAL 1.3 MG/DL (0.1-1.0); BLOOD UREA NITROGEN 12 MG/DL (7-18); BUN/CREATININE RATIO 12.1 (10.0-20.0); CALCIUM 8.2 MG/DL (8.5-10.1); CHLORIDE 107 MMOL/L (99-107); CREATININE 0.99 MG/DL (0.60-1.10); GLUCOSE 142 MG/DL (70-104); POTASSIUM 3.6 MMOL/L (3.5-5.1); SODIUM 142 MMOL/L (135-145); TOTAL CARBON DIOXIDE 27.4 MMOL/L (24-32); TOTAL PROTEIN 6.8 G/DL (6.4-8.2); eCRCL 44 ML/MIN; eGFR 72 ML/MIN
[2023-12-12 12:57] LABS: PRO BRAIN NATRIURETIC PEPTIDE 8997 PG/ML (0-450)
[2023-12-12 16:03] LABS: BILIRUBIN,URINE NEGATIVE (Neg); CLARITY,URINE CLEAR (Clear); COLOR,URINE YELLOW (Yellow); GLUCOSE, URINE NEGATIVE (Neg); KETONES,URINE NEGATIVE (Neg); LEUKOCYTE ESTERASE ,URINE NEGATIVE (Neg); NITRITES, URINE NEGATIVE (Neg); OCCULT BLOOD,URINE TRACE-INTACT (Neg); PROTEIN,URINE NEGATIVE (Neg); UROBILINOGEN,URINE 0.2 E.U/dL (0.2-1.0)
[2023-12-12 16:11] LABS: UA COLLECTION TYPE NON-SPECIFIED; WBC,URINE 0-4 /HPF (0-4)
[2023-12-12 16:12] LABS: BACTERIA,URINE NONE SEEN /HPF (Neg); MUCUS STRANDS FEW /LPF (Neg); SQUAMOUS EPITHELIAL CELL,UR FEW /LPF (FEW)
[2023-12-12 16:35] VITALS: BP 133/61; PULSE 69; RESP 12; TEMP 98.2; O2SAT 96
== END 2023-12-12 16:37 | disposition home or self-care (01) ==
LOC: ER 12:17
DX: R53.1 Weakness (principal); R26.2 Difficulty in walking, not elsewhere classified; I48.91 Unspecified atrial fibrillation; I25.10 Atherosclerotic heart disease of native coronary artery without angina pectoris; E78.00 Pure hypercholesterolemia, unspecified; I10 Essential (primary) hypertension; Z60.2 Problems related to living alone; Z88.8 Allergy status to other drugs, medicaments and biological substances; Z79.82 Long term (current) use of aspirin; Z79.899 Other long term (current) drug therapy
CPT/HCPCS: 36415; 71045; 80053; 81001; 83880; 84484; 85025; 93005; 99285